=== PATIENT | female | born 1970 | race Two or more races ===

== ENCOUNTER → 2017-07-27 | Outpatient (REF) | payer OTHER | LOC: M LAB REF 17:48 | DX: R30.0 Dysuria (principal) | CPT/HCPCS: 87086 ==

== ENCOUNTER → 2018-02-10 | Outpatient (REF) | payer OTHER | LOC: M WUC 12:33 | DX: N39.0 Urinary tract infection, site not specified (principal) ==

== ENCOUNTER 2018-09-29 07:49 | Day surgery (SDC) | payer OTHER ==
[~2018-09-29] VITALS: Ht 162.6 cm; Wt 56.7 kg
[~2018-09-29 07:49] MED LIST: AMIT100TA PO; BOTO200I IM; D 10CHW PO; GABA600T4 PO; LEVO50TA5 PO; NS 1,000 ML IV ONE; TOPA200T7 PO; [UNRECOGNIZED DRUG - CODE] SC
[2018-09-29] MEDS ORDERED: fentaNYL 100 MCG/2 ML INJECTION (J3010) As Ordered ONE (08:36)
[2018-09-29] MEDS ORDERED: PROPOFOL 200 MG/20 ML VIAL As Ordered ONE (08:40)
[2018-09-29] MEDS ORDERED: LIDOCAINE 2% INJ 100 MG/5 ML SDV (FOR ANES.) As Ordered ONE (08:41)
--- NOTE | 2018-09-29 09:16 | ROOR ---
Patient Name: Chris Mills Procedure Date: 09/29/2018 9:03 AM Date of : 1970 Age: 48 Room: [facility] Gender: Female Note Status: Finalized Procedure: Upper Endoscopy + Biopsies Indications: Odynophagia Providers: Magan Alcocer MD Referring MD: HETAL FONG MD Requesting Provider: Medicines: Monitored Anesthesia Care Complications: No immediate complications. Procedure: Pre-Anesthesia Assessment: - The heart rate, respiratory rate, oxygen saturations, blood pressure, adequacy of pulmonary ventilation, and response to care were monitored throughout the procedure. The Endoscope was introduced through the mouth, and advanced to the second part of duodenum. The upper GI endoscopy was accomplished without difficulty. The patient tolerated the procedure well. Findings: The Z-line was regular and was found 40 cm from the incisors. Diffuse, yellow plaques were found in the entire esophagus. Biopsies were taken with a cold forceps for histology. No other significant abnormalities were identified in a careful examination of the stomach. The exam of the duodenum was otherwise normal. Impression: - Z-line regular, 40 cm from the incisors. - Esophageal plaques were found, suspicious for candidiasis. Biopsied. - The examination was otherwise normal. Recommendation: - Await pathology results. - Discharge patient to home. - Follow an antireflux regimen. - Diflucan (fluconazole) 100 mg PO daily for 2 weeks. - Await pathology results. - Telephone GI clinic for pathology results in 1 week. - Return to referring physician. - The findings and recommendations were discussed with the patient's family. Magan Alcocer MD Magan Alcocer MD 09/29/2018 9:16:08 AM This report has been signed electronically. Number of Addenda: 0 Note Initiated On: 09/29/2018 9:03 AM Estimated Blood Loss: Estimated blood loss: none.
[2018-09-29 09:45] VITALS: BP 106/64
== END 2018-09-29 09:47 | disposition home or self-care (01) ==
LOC: M OPP 07:49
PROVIDERS: ATTEND Internal Medicine Gastroenterology
DX: R13.10 Dysphagia, unspecified (principal); K22.9 Disease of esophagus, unspecified; Z79.899 Other long term (current) drug therapy; Z88.8 Allergy status to other drugs, medicaments and biological substances; Z87.891 Personal history of nicotine dependence
CPT/HCPCS: 43239; 88305; J3010

== ENCOUNTER 2019-09-15 11:24 | Emergency (ER) | payer OTHER ==
[~2019-09-15] VITALS: Ht 162.6 cm; Wt 60.1 kg
[~2019-09-15 11:24] MED LIST changes: -NS 1,000 ML IV ONE
[2019-09-15 12:06] LABS: HEMATOCRIT 41.3 % (36.0-47.0); MEAN CORPUSCULAR HEMOGLOBIN 30.4 pg (27.0-33.0); MEAN CORPUSCULAR HGB CONC 33.9 g/dl (32.0-36.5); MEAN CORPUSCULAR VOLUME 89.8 fl (80.0-96.0); PLATELET COUNT, AUTOMATED 198 10^3/uL (150-450); WHITE BLOOD COUNT 4.2 10^3/uL (4.0-10.0)
[2019-09-15] MEDS ORDERED: ASPIRIN 81 MG CHEW TABLET PO ONE (12:15)
[2019-09-15] MEDS: NITROGLYCERIN 0.4 MG SUBL TABLET SL PRN ×3 (12:16→12:30)
[2019-09-15 12:27] LABS: BASOPHILS 2 % (0-1); EOSINOPHILS 3 % (0-3); LYMPHOCYTES 59 % (16-44); MONOCYTES 10 % (0-5); NEUTROPHILS 26 % (28-66)
[2019-09-15 12:28] LABS: PLATELET ESTIMATE NORMAL (NORMAL)
[2019-09-15 12:30] VITALS: BP 122/76
--- NOTE | 2019-09-15 12:30 | REP ---
CHEST, SINGLE VIEW: There is no evidence of acute infiltrate. No pleural effusion is seen. The heart is normal in size. The mediastinal silhouette is unremarkable. The visualized osseous structures are intact. IMPRESSION: No acute pulmonary disease. Electronically Signed by Shemar Li MD 09/15/2019 07:55 P
[2019-09-15 12:39] LABS: ALBUMIN 3.6 GM/DL (3.2-5.2); ALT/SGPT 35 U/L (12-78); BILIRUBIN,DIRECT < 0.1 MG/DL (0.0-0.2); BILIRUBIN,TOTAL 0.2 MG/DL (0.2-1.0); BLOOD UREA NITROGEN 8 MG/DL (7-18); CALCIUM LEVEL 8.7 MG/DL (8.5-10.1); CARBON DIOXIDE LEVEL 24 MEQ/L (21-32); CHLORIDE LEVEL 112 MEQ/L (98-107); CK-MB VALUE MASS 1.8 NG/ML (<3.6); CPK CREATINE PHOSPHOKINASE 63 U/L (26-192); CREATININE FOR GFR 0.85 MG/DL (0.55-1.30); GLOMERULAR FILTRATION RATE > 60.0 (>51); GLUCOSE, FASTING 96 MG/DL (70-100); LIPASE 132 U/L (73-393); MB/CK RELATIVE INDEX 2.86 (< OR =4); POTASSIUM SERUM 3.7 MEQ/L (3.5-5.1); SODIUM LEVEL 141 MEQ/L (136-145); TOTAL PROTEIN 7.4 GM/DL (6.4-8.2); TROPONIN I 0.02 NG/ML (< 0.10)
[2019-09-15] MEDS ORDERED: MORPHINE 4 MG/ML 1ML VIAL/SYRINGE (J2270) IV ONE ×2 (13:00→14:15)
[2019-09-15 13:17] LABS: INR 0.99; PROTHROMBIN TIME 12.8 SECONDS (11.8-14.0)
[2019-09-15] MEDS ORDERED: ISOVUE-370 76% 100ML VIAL (Q9967) As Ordered ONE (13:49)
[2019-09-15] MEDS ORDERED: ONDANSETRON 4MG/2ML VIAL (J2405) IV ONE (14:00)
--- NOTE | 2019-09-15 14:26 | REP ---
CT thoracic aortic angiogram: With IV contrast. History: Chest pain. Rule out aortic dissection. Comparison studies: No comparison study. Contrast dose: 75 mL of Isovue [address] technique: Helical scanning is acquired and overlapping 1.5 mm and contiguous 3 mm axial images are reformatted. In addition, maximum intensity projection and multiplanar re-formation images are generated in sagittal and coronal imaging projections. CT aortic angiographic findings: There is good opacification of the thoracic aorta and there is no CT evidence of aortic dissection or aneurysm. The ascending aorta measures 28 mm in AP dimension at the level of the right main pulmonary artery. Pulmonary arterial tree is well opacified and there is no CT evidence of pulmonary embolus. There is no evidence of hilar or mediastinal mass or adenopathy. No pleural or pericardial effusion is seen. There is some plate-like atelectasis in the right lower lobe and left lower lobe posteriorly mild in degree. No definite infiltrate is seen. No lung mass or significant pulmonary nodule is appreciated. There is a calcified benign granuloma in the left upper lobe posteriorly. 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 Bone window settings show no adrenal lesion is seen. Visualized upper abdominal structures are unremarkable. Impression: There is no evidence of aortic aneurysm or dissection. No CT evidence of pulmonary embolus. Granuloma left upper lobe. Bilateral lower lobe mild plate-like atelectasis. Otherwise negative. Electronically Signed by Donnell Boss MD 09/15/2019 06:01 P
[2019-09-15] MEDS ORDERED: HEPARIN SOD (PORCINE) 5000 UNITS/ML VIAL (J1644 PER 1000UNITS) IV ONE (14:45)
[2019-09-15] MEDS ORDERED: CLOPIDOGREL 300 MG TAB (PLAVIX) PO ONE (14:45)
[2019-09-15] MEDS ORDERED: HEPARIN DRIP 25,000 UNITS in IV 1 EA IV SCH (15:00)
[2019-09-15 15:38] VITALS: BP 106/64
--- NOTE | 2019-09-17 06:18 | ECGEPIP ---
[facility] - ED Test Date: 2019-09-15 Pat Name: ANTHONY ADAMS Department: Room: - Gender: Female [employer]: THI : 1970 Requested By: Woody Downs Order Number: [id number] Reading MD: Holden Hargrove Measurements Intervals [place] Rate: 89 P: 72 LA: 161 QRS: 68 QRSD: 88 T: 12 QT: 334 QTc: 407 Interpretive Statements SINUS RHYTHM NONSPECIFIC ST & T-WAVE ABNORMALITY NO PRIORS FOR COMPARISON Electronically Signed on 09-17-2019 6:17:57 EST by Holden Hargrove
== END 2019-09-15 15:42 | disposition short-term general hospital (02) ==
LOC: M ED 11:24
DX: I20.0 Unstable angina (principal); R94.31 Abnormal electrocardiogram [ECG] [EKG]; R91.8 Other nonspecific abnormal finding of lung field; M32.9 Systemic lupus erythematosus, unspecified; E03.9 Hypothyroidism, unspecified; Z87.891 Personal history of nicotine dependence; Z88.3 Allergy status to other anti-infective agents; Z79.83 Long term (current) use of bisphosphonates; Z79.899 Other long term (current) drug therapy
CPT/HCPCS: 36415; 71045; 71275; 80048; 80076; 82550; 82553; 83690; 84484; 85025; 85610; 85730; 93005; 93041; 94760; 96374; 96375; 96376; 99285; J1644; J2270; J2405; Q9967

== ENCOUNTER → 2020-01-06 | Outpatient (REF) | payer OTHER | LOC: M WUC 12:27 | PROVIDERS: ATTEND Physician Assistant | DX: R30.0 Dysuria (principal) ==

== ENCOUNTER → 2020-06-27 | Outpatient (CLI) | payer SELFPAY | LOC: M LABSMTC 13:28 | PROVIDERS: ATTEND Pediatrics | DX: Z20.828 Contact with and (suspected) exposure to other viral communicable diseases (principal) ==

== ENCOUNTER → 2020-07-18 | Outpatient (CLI) | payer OTHER ==
[2020-07-18 17:34] LABS: FREE T4 1.12 NG/DL (0.76-1.46); THYROID STIMULATING HORMONE 0.561 uIU/ML (0.358-3.740)
== END ==
LOC: M WUC 14:21
PROVIDERS: ATTEND Nurse Practitioner Family
DX: E06.3 Autoimmune thyroiditis (principal)

== ENCOUNTER → 2020-08-03 | Outpatient (CLI) | payer OTHER ==
[2020-08-03 16:14] LABS: BASO % 0.8 % (0.0-1.0); EOS # 0.1 10^3/uL (0.0-0.5); EOS % 1.4 % (0.0-3.0); HEMATOCRIT 41.2 % (36.0-47.0); HEMOGLOBIN 13.6 g/dl (12.0-15.5); LYMPH # 2.1 10^3/uL (1.5-5.0); LYMPH % 58.8 % (24.0-44.0); MEAN CORPUSCULAR VOLUME 90.9 fl (80.0-96.0); MONO # 0.4 10^3/uL (0.0-0.8); MONO % 10.5 % (0.0-5.0); NEUTROPHILS % 28.5 % (36.0-66.0); PLATELET COUNT, AUTOMATED 198 10^3/uL (150-450); RED BLOOD COUNT 4.53 10^6/uL (4.00-5.40); WHITE BLOOD COUNT 3.6 10^3/uL (4.0-10.0)
[2020-08-03 16:40] LABS: ERYTHROCYTE SEDIMENTATION RATE 10 mm/hr (0-30)
[2020-08-03 16:50] LABS: ALBUMIN 3.8 GM/DL (3.2-5.2); ALT/SGPT 24 U/L (12-78); BILIRUBIN,TOTAL 0.3 MG/DL (0.2-1.0); BLOOD UREA NITROGEN 15 MG/DL (7-18); CALCIUM LEVEL 9.2 MG/DL (8.5-10.1); CARBON DIOXIDE LEVEL 24 MEQ/L (21-32); CHLORIDE LEVEL 109 MEQ/L (98-107); CREATININE FOR GFR 0.94 MG/DL (0.55-1.30); GLOMERULAR FILTRATION RATE > 60.0 (>51); GLUCOSE, FASTING 85 MG/DL (70-100); POTASSIUM SERUM 3.8 MEQ/L (3.5-5.1); RHEUMATOID FACTOR QUANT 45.7 IU/ML (<15.0); SODIUM LEVEL 139 MEQ/L (136-145); TOTAL PROTEIN 7.5 GM/DL (6.4-8.2)
[2020-08-06 05:09] LABS: ANTI DOUBLE STRAND-DNA AB <1 IU/mL (0-9); ANTINUCLEAR ANTIBODIES DIRECT Positive (Negative); BETA-2 GLYCOPROTEIN I ABY IGA <9 (0-25); BETA-2 GLYCOPROTEIN I ABY IGG <9 (0-20); BETA-2 GLYCOPROTEIN I ABY IGM <9 (0-32); CARDIOLIPIN IGA ANTIBODY <9 APL U/mL (0-11); CARDIOLIPIN IGG ANTIBODY <9 GPL U/mL (0-14); CARDIOLIPIN IGM ANTIBODY 10 MPL U/mL (0-12); HEXAGONAL PHASE PHOSPHOLIPID 4 sec (0-11); RNP ANTIBODIES <0.2 AI (0.0-0.9); SJOGREN'S ANTI SS-A >8.0 AI (0.0-0.9); SJOGREN'S ANTI SS-B 4.2 AI (0.0-0.9); SMITH ANTIBODIES <0.2 AI (0.0-0.9)
[2020-08-10 11:30] LABS: DRVV SCREEN 40.4 SEC
== END ==
LOC: M WUC 14:20
PROVIDERS: ATTEND Internal Medicine Rheumatology
DX: R76.8 Other specified abnormal immunological findings in serum (principal); M05.79 Rheumatoid arthritis with rheumatoid factor of multiple sites without organ or systems involvement; M35.00 Sjogren syndrome, unspecified

== ENCOUNTER → 2020-08-09 | Outpatient (REF) | payer OTHER | LOC: M LAB REF 16:04 | PROVIDERS: ATTEND Physician Assistant | DX: R30.0 Dysuria (principal) ==

== ENCOUNTER → 2020-12-10 | Outpatient (REF) | payer OTHER | LOC: M LAB REF 18:08 | PROVIDERS: ATTEND Physician Assistant | DX: R30.0 Dysuria (principal) ==

== ENCOUNTER → 2021-01-04 | Outpatient (CLI) | payer OTHER ==
[2021-01-04 18:15] LABS: BASO % 0.8 % (0.0-1.0); EOS # 0.1 10^3/uL (0.0-0.5); EOS % 1.8 % (0.0-3.0); HEMATOCRIT 42.1 % (36.0-47.0); HEMOGLOBIN 13.8 g/dl (12.0-15.5); LYMPH # 2.7 10^3/uL (1.5-5.0); LYMPH % 69.5 % (24.0-44.0); MEAN CORPUSCULAR HEMOGLOBIN 29.2 pg (27.0-33.0); MEAN CORPUSCULAR HGB CONC 32.8 g/dl (32.0-36.5); MONO # 0.4 10^3/uL (0.0-0.8); MONO % 11.2 % (2.0-8.0); NEUTROPHILS % 16.7 % (36.0-66.0); PLATELET COUNT, AUTOMATED 220 10^3/uL (150-450); RED BLOOD COUNT 4.73 10^6/uL (4.00-5.40); WHITE BLOOD COUNT 3.9 10^3/uL (4.0-10.0)
[2021-01-04 18:35] LABS: ALT/SGPT 25 U/L (12-78); BILIRUBIN,TOTAL 0.4 MG/DL (0.2-1.0); BLOOD UREA NITROGEN 9 MG/DL (7-18); CALCIUM LEVEL 8.9 MG/DL (8.5-10.1); CARBON DIOXIDE LEVEL 25 MEQ/L (21-32); CHLORIDE LEVEL 109 MEQ/L (98-107); CREATININE FOR GFR 0.97 MG/DL (0.55-1.30); GLOMERULAR FILTRATION RATE > 60.0 (>51); GLUCOSE, FASTING 94 MG/DL (70-100); POTASSIUM SERUM 3.7 MEQ/L (3.5-5.1); SODIUM LEVEL 140 MEQ/L (136-145); TOTAL PROTEIN 7.8 GM/DL (6.4-8.2)
[2021-01-04 18:41] LABS: FOLATE 10.7 NG/ML; VITAMIN B12 LEVEL 416 PG/ML
[2021-01-04 20:49] LABS: NEUTROPHILS # 0.7 10^3/uL (1.5-8.5)
== END ==
LOC: M WUC 14:15
PROVIDERS: ATTEND Psychiatry & Neurology Neurology
DX: R51.9 Headache, unspecified (principal); M54.9 Dorsalgia, unspecified

== ENCOUNTER → 2021-01-23 | Outpatient (REF) | payer OTHER ==
[2021-01-23 17:24] LABS: APPEARANCE, URINE CLOUDY (CLEAR); BACTERIA, URINE AUTO NEGATIVE (NEGATIVE); BILIRUBIN, URINE AUTO NEGATIVE (NEGATIVE); BLOOD, URINE BLOOD NEGATIVE (NEGATIVE); COLOR, URINE YELLOW (YELLOW); GLUCOSE, URINE (UA) AUTO NEGATIVE (NEGATIVE); KETONE, URINE AUTO NEGATIVE (NEGATIVE); LEUKOCYTE ESTERASE, URINE AUTO NEGATIVE (NEGATIVE); NITRITE, URINE AUTO NEGATIVE (NEGATIVE); PROTEIN, URINE AUTO NEGATIVE (NEGATIVE); RBC, URINE AUTO 0 /HPF (0-3); SPECIFIC GRAVITY URINE AUTO 1.015 (1.002-1.035); SQUAMOUS EPITHELIAL CELL UR AU 2 /HPF (0-6); UROBILINOGEN, URINE AUTO 0.2 mg/dL (0.0-2.0); WBC, URINE AUTO 0 /HPF (0-3)
== END ==
LOC: M SMT 16:56
PROVIDERS: ATTEND Nurse Practitioner Women's Health
DX: N39.0 Urinary tract infection, site not specified (principal)
CPT/HCPCS: 51798; 81001; 87086; G0463

== ENCOUNTER → 2021-02-14 | Outpatient (CLI) | payer OTHER | LOC: M WHC 12:17 | PROVIDERS: ATTEND Nurse Practitioner Women's Health | DX: N39.0 Urinary tract infection, site not specified (principal) ==

== ENCOUNTER → 2021-03-09 | Outpatient (CLI) | payer OTHER ==
--- NOTE | 2021-03-09 12:43 | REP ---
INDICATION: HX RECURRENT UTI COMPARISON: None TECHNIQUE: Real time perales scale ultrasound examination using curved array transducer. FINDINGS: Bilateral kidneys are normal in contour, size, echogenicity, and reniform shape. No hydronephrosis, nephrolithiasis, cystic or renal mass lesion. No perinephric fluid collection. Bladder is unremarkable. Right kidney measures 9.7 x 5.5 x 3.5 cm. Left kidney measures 9.9 x 4.9 x 5.2 cm. IMPRESSION: 1. Normal renal ultrasound. <Electronically signed by James Kyle > 03/09/21 [id number]
== END ==
LOC: M RAD 11:59
PROVIDERS: ATTEND Urology
DX: Z87.440 Personal history of urinary (tract) infections (principal)

== ENCOUNTER → 2021-03-13 | Outpatient (CLI) | payer OTHER ==
[2021-03-13 11:54] LABS: CALCIUM LEVEL 9.2 MG/DL (8.5-10.1); CREATININE FOR GFR 1.03 MG/DL (0.55-1.30); GLOMERULAR FILTRATION RATE 59.9 (>51); POTASSIUM SERUM 3.8 MEQ/L (3.5-5.1)
== END ==
LOC: M WUC 08:51
PROVIDERS: ATTEND Nurse Practitioner Family
DX: I25.10 Atherosclerotic heart disease of native coronary artery without angina pectoris (principal)

== ENCOUNTER → 2021-03-22 | Outpatient (REF) | payer OTHER ==
[2021-03-22 13:18] LABS: APPEARANCE, URINE CLEAR (CLEAR); BACTERIA, URINE AUTO 2+ (NEGATIVE); BILIRUBIN, URINE AUTO NEGATIVE (NEGATIVE); BLOOD, URINE BLOOD NEGATIVE (NEGATIVE); COLOR, URINE AMBER (YELLOW); GLUCOSE, URINE (UA) AUTO NEGATIVE (NEGATIVE); KETONE, URINE AUTO NEGATIVE (NEGATIVE); LEUKOCYTE ESTERASE, URINE AUTO 1+ (NEGATIVE); MUCUS, URINE SMALL (NEGATIVE); NITRITE, URINE AUTO POSITIVE (NEGATIVE); PROTEIN, URINE AUTO NEGATIVE (NEGATIVE); RBC, URINE AUTO 1 /HPF (0-3); SPECIFIC GRAVITY URINE AUTO 1.012 (1.002-1.035); SQUAMOUS EPITHELIAL CELL UR AU 1 /HPF (0-6); WBC, URINE AUTO 13 /HPF (0-3)
== END ==
LOC: M SMT 12:39
PROVIDERS: ATTEND Nurse Practitioner Women's Health
DX: R30.0 Dysuria (principal)

== ENCOUNTER → 2021-05-16 | Outpatient (REF) | payer OTHER ==
[2021-05-16 14:02] LABS: APPEARANCE, URINE CLEAR (CLEAR); BACTERIA, URINE AUTO 1+ (NEGATIVE); BILIRUBIN, URINE AUTO NEGATIVE (NEGATIVE); BLOOD, URINE BLOOD NEGATIVE (NEGATIVE); COLOR, URINE AMBER (YELLOW); GLUCOSE, URINE (UA) AUTO 1+ mg/dL (NEGATIVE); KETONE, URINE AUTO NEGATIVE (NEGATIVE); LEUKOCYTE ESTERASE, URINE AUTO TRACE (NEGATIVE); MUCUS, URINE SMALL (NEGATIVE); NITRITE, URINE AUTO POSITIVE (NEGATIVE); PROTEIN, URINE AUTO 2+ mg/dL (NEGATIVE); RBC, URINE AUTO 2 /HPF (0-3); SQUAMOUS EPITHELIAL CELL UR AU 16 /HPF (0-6); WBC, URINE AUTO 102 /HPF (0-3)
== END ==
LOC: M SMT 13:04
PROVIDERS: ATTEND Nurse Practitioner Women's Health
DX: N39.0 Urinary tract infection, site not specified (principal)

== ENCOUNTER → 2021-07-13 | Outpatient (CLI) | payer OTHER ==
[2021-07-13 16:40] LABS: FREE T4 1.2 NG/DL (0.76-1.46); THYROID STIMULATING HORMONE 0.037 uIU/ML (0.358-3.740)
== END ==
LOC: M WUC 09:59
PROVIDERS: ATTEND Nurse Practitioner Family
DX: E06.3 Autoimmune thyroiditis (principal)

== ENCOUNTER → 2021-10-16 | Outpatient (REF) | payer OTHER | LOC: M LAB REF 22:17 | PROVIDERS: ATTEND Physician Assistant | DX: N39.0 Urinary tract infection, site not specified (principal) ==

== ENCOUNTER → 2021-10-16 | Outpatient (CLI) | payer OTHER ==
[2021-10-16 16:42] LABS: FREE T4 1.12 NG/DL (0.76-1.46); THYROID STIMULATING HORMONE 0.13 uIU/ML (0.358-3.740)
== END ==
LOC: M WUC 13:18
PROVIDERS: ATTEND Nurse Practitioner Family
DX: E06.3 Autoimmune thyroiditis (principal)

== ENCOUNTER → 2021-11-01 | Outpatient (REF) | payer OTHER ==
[2021-11-01 20:05] LABS: APPEARANCE, URINE MANUAL HAZY (CLEAR); BILIRUBIN, URINE MANUAL OBSCURED (NEGATIVE); COLOR, URINE MANUAL ORANGE (YELLOW); GLUCOSE, URINE (UA) MANUAL OBSCURED mg/dL (NEGATIVE); KETONE, URINE MANUAL OBSCURED mg/dL (NEGATIVE); NITRITE, URINE MANUAL OBSCURED (NEGATIVE); PH,URINE MAN OBSCURED UNITS (5.0 - 7.0); PROTEIN, URINE MANUAL OBSCURED mg/dL (NEGATIVE); SPECIFIC GRAVITY,URINE MANUAL 1.015 (1.002-1.035); UROBILINOGEN, URINE MANUAL OBSCURED mg/dl (NORMAL)
[2021-11-01 20:06] LABS: BLOOD URINE MANUAL OBSCURED (NEGATIVE); LEUKOCYTE ESTERASE, URINE MAN OBSCURED (NEGATIVE)
[2021-11-01 20:07] LABS: BACTERIA, URINE SMALL AMOUNT; HYALINE CAST, URINE NONE SEEN /lpf (0-1); RBC, URINE NONE SEEN /hpf (0-3); SQUAMOUS EPITHELIAL CELL URINE SMALL AMOUNT /hpf (SMALL AMT)
== END ==
LOC: M LAB REF 19:35
PROVIDERS: ATTEND Physician Assistant Medical
DX: R30.0 Dysuria (principal)

== ENCOUNTER → 2021-11-24 | Outpatient (CLI) | payer OTHER ==
[2021-11-24 16:12] LABS: BASO % 0.7 % (0.0-1.0); EOS # 0.3 10^3/uL (0.0-0.5); EOS % 4.9 % (0.0-3.0); HEMOGLOBIN 13.3 g/dl (12.0-15.5); LYMPH # 2.9 10^3/uL (1.5-5.0); LYMPH % 49.2 % (24.0-44.0); MEAN CORPUSCULAR HEMOGLOBIN 29.2 pg (27.0-33.0); MEAN CORPUSCULAR HGB CONC 33.3 g/dl (32.0-36.5); MEAN CORPUSCULAR VOLUME 87.9 fl (80.0-96.0); MONO # 0.5 10^3/uL (0.0-0.8); MONO % 8.9 % (2.0-8.0); NEUTROPHILS # 2.1 10^3/uL (1.5-8.5); PLATELET COUNT, AUTOMATED 209 10^3/uL (150-450); RED BLOOD COUNT 4.55 10^6/uL (4.00-5.40); WHITE BLOOD COUNT 5.9 10^3/uL (4.0-10.0)
[2021-11-24 16:13] LABS: ALBUMIN 3.8 GM/DL (3.2-5.2); BILIRUBIN,TOTAL 0.5 MG/DL (0.2-1.0); CALCIUM LEVEL 9.4 MG/DL (8.5-10.1); CREATININE FOR GFR 1.17 MG/DL (0.55-1.30); GLOMERULAR FILTRATION RATE 51.7 (>51); POTASSIUM SERUM 3.9 MEQ/L (3.5-5.1); TOTAL PROTEIN 7.8 GM/DL (6.4-8.2)
== END ==
LOC: M WUC 14:00
PROVIDERS: ATTEND Psychiatry & Neurology Neurology
DX: R51.9 Headache, unspecified (principal); E53.8 Deficiency of other specified B group vitamins

== ENCOUNTER → 2021-12-07 | Outpatient (REF) | payer OTHER ==
[2021-12-07 18:02] LABS: APPEARANCE, URINE CLEAR (CLEAR); BACTERIA, URINE AUTO NEGATIVE (NEGATIVE); BILIRUBIN, URINE AUTO NEGATIVE (NEGATIVE); BLOOD, URINE BLOOD NEGATIVE (NEGATIVE); COLOR, URINE YELLOW (YELLOW); GLUCOSE, URINE (UA) AUTO NEGATIVE (NEGATIVE); KETONE, URINE AUTO NEGATIVE (NEGATIVE); LEUKOCYTE ESTERASE, URINE AUTO 1+ (NEGATIVE); NITRITE, URINE AUTO NEGATIVE (NEGATIVE); PROTEIN, URINE AUTO NEGATIVE (NEGATIVE); RBC, URINE AUTO 0 /HPF (0-3); SPECIFIC GRAVITY URINE AUTO 1.004 (1.002-1.035); SQUAMOUS EPITHELIAL CELL UR AU 0 /HPF (0-6); UROBILINOGEN, URINE AUTO 0.2 mg/dL (0.0-2.0); WBC, URINE AUTO 2 /HPF (0-3)
== END ==
LOC: M SMT 17:11
PROVIDERS: ATTEND Nurse Practitioner Women's Health
DX: N39.0 Urinary tract infection, site not specified (principal)
CPT/HCPCS: 81001; 87086; G0463

== ENCOUNTER → 2022-01-30 | Outpatient (REF) | payer OTHER | LOC: M LABWUC 15:46 | PROVIDERS: ATTEND Nurse Practitioner Family | DX: E06.3 Autoimmune thyroiditis (principal) ==

== ENCOUNTER → 2022-03-16 | Outpatient (CLI) | payer OTHER | LOC: M WUC 08:45 | PROVIDERS: ATTEND Nurse Practitioner Family | DX: I25.10 Atherosclerotic heart disease of native coronary artery without angina pectoris (principal) ==

== ENCOUNTER → 2022-03-23 | Outpatient (REF) | payer OTHER ==
[2022-03-23 22:15] LABS: RSV AMPLIFICATION NEGATIVE (NEGATIVE)
== END ==
LOC: M LAB REF 21:04
PROVIDERS: ATTEND Internal Medicine
DX: J06.9 Acute upper respiratory infection, unspecified (principal)

== ENCOUNTER 2022-07-17 01:12 | Emergency (ER) | payer OTHER ==
[~2022-07-17] VITALS: Ht 162.6 cm; Wt 56.4 kg
[2022-07-17] MEDS ORDERED: KETOROLAC 30 MG/ML 1ML VIAL IV ONE (04:10)
[2022-07-17] MEDS ORDERED: METOCLOPRAMIDE INJ 10MG/2ML VIAL IV ONE (04:10)
[2022-07-17] MEDS ORDERED: NS 1,000 ML IV ONE (04:10)
[2022-07-17 04:40] LABS: HEMATOCRIT 39.8 % (36.0-47.0); HEMOGLOBIN 12.8 g/dl (12.0-15.5); MEAN CORPUSCULAR HEMOGLOBIN 29.5 pg (27.0-33.0); MEAN CORPUSCULAR HGB CONC 32.2 g/dl (32.0-36.5); MEAN CORPUSCULAR VOLUME 91.7 fl (80.0-96.0); PLATELET COUNT, AUTOMATED 128 10^3/uL (150-450); RED BLOOD COUNT 4.34 10^6/uL (4.00-5.40); WHITE BLOOD COUNT 3.3 10^3/uL (4.0-10.0)
[2022-07-17 04:47] LABS: ERYTHROCYTE SEDIMENTATION RATE 35 mm/hr (0-30)
[2022-07-17 05:00] LABS: BLOOD UREA NITROGEN 12 MG/DL (9-23); CALCIUM LEVEL 8.7 MG/DL (8.5-10.1); CARBON DIOXIDE LEVEL 19 MMOL/L (20-31); CHLORIDE LEVEL 107 MMOL/L (98-107); CREATININE FOR GFR 0.88 MG/DL (0.55-1.30); GLOMERULAR FILTRATION RATE > 60.0 (>51); GLUCOSE, FASTING 95 MG/DL (60-100); POTASSIUM SERUM 3.9 MMOL/L (3.5-5.1); SODIUM LEVEL 139 MMOL/L (136-145)
[2022-07-17 05:01] LABS: ATYPICAL LYMPH 9 % (0-5); BASOPHILS 1 % (0-1); EOSINOPHILS 5 % (0-3); LYMPHOCYTES 20 % (16-44); MONOCYTES 8 % (0-5); NEUTROPHILS 55 % (28-66)
[2022-07-17 05:02] LABS: PLATELET ESTIMATE NORMAL (NORMAL)
[2022-07-17 05:03] LABS: PLATELET CLUMPS SMALL AMT
[2022-07-17] MEDS ORDERED: methylPREDNISolone 125MG 2ML VIAL IV ONE (05:25)
[2022-07-17 07:15] VITALS: BP 104/58
== END 2022-07-17 07:23 | disposition home or self-care (01) ==
LOC: M ED 01:12
DX: L93.1 Subacute cutaneous lupus erythematosus (principal); G43.909 Migraine, unspecified, not intractable, without status migrainosus; E03.9 Hypothyroidism, unspecified; Z88.8 Allergy status to other drugs, medicaments and biological substances; Z87.891 Personal history of nicotine dependence; Z79.899 Other long term (current) drug therapy; Z79.82 Long term (current) use of aspirin
CPT/HCPCS: 80048; 85025; 85652; 96374; 96375; 99284; J1885; J2765; J2930

== ENCOUNTER → 2022-07-27 | Outpatient (CLI) | payer OTHER | LOC: M WUC 14:11 | PROVIDERS: ATTEND Nurse Practitioner Family | DX: E06.3 Autoimmune thyroiditis (principal) ==

== ENCOUNTER → 2022-08-30 | Outpatient (REF) | payer OTHER | LOC: M PLALAB 16:27 | PROVIDERS: ATTEND Nurse Practitioner Family | DX: Z12.4 Encounter for screening for malignant neoplasm of cervix (principal); R87.610 Atypical squamous cells of undetermined significance on cytologic smear of cervix (ASC-US) | CPT/HCPCS: 87624; G0123 ==

== ENCOUNTER → 2022-08-30 | Outpatient (CLI) | payer OTHER | LOC: M WHC 13:53 | PROVIDERS: ATTEND Nurse Practitioner Family | DX: Z12.31 Encounter for screening mammogram for malignant neoplasm of breast (principal) | CPT/HCPCS: 77063; 77067; 87624; G0123; G0463 ==

== ENCOUNTER → 2022-11-01 | Outpatient (CLI) | payer OTHER ==
[2022-11-01 17:05] LABS: ALBUMIN 3.6 G/DL (3.2-5.2); ALKALINE PHOSPHATASE 92 U/L (46-116); ALT/SGPT 25 U/L (7.0-40); AST/SGOT 25 U/L (<34); BILIRUBIN,TOTAL 0.2 MG/DL (0.3-1.2); BLOOD UREA NITROGEN 20 MG/DL (9-23); CARBON DIOXIDE LEVEL 26 MMOL/L (20-31); CHLORIDE LEVEL 110 MMOL/L (98-107); CREATININE FOR GFR 0.97 MG/DL (0.55-1.30); GLOMERULAR FILTRATION RATE > 60.0 (>51); GLUCOSE, FASTING 75 MG/DL (60-100); SODIUM LEVEL 142 MMOL/L (136-145); TOTAL PROTEIN 6.7 G/DL (5.7-8.2)
[2022-11-01 17:11] LABS: TOTAL 25(OH) VITAMIN D 21.4 NG/ML (20.0-100.0)
[2022-11-01 17:12] LABS: FOLATE 7.89 NG/ML (>5.4)
[2022-11-01 17:16] LABS: BASO % 0.5 % (0.0-1.0); EOS # 0.2 10^3/uL (0.0-0.5); EOS % 3.4 % (0.0-3.0); HEMATOCRIT 40.3 % (36.0-47.0); HEMOGLOBIN 13.2 g/dl (12.0-15.5); LYMPH # 3.1 10^3/uL (1.5-5.0); MEAN CORPUSCULAR HEMOGLOBIN 30.3 pg (27.0-33.0); MEAN CORPUSCULAR HGB CONC 32.8 g/dl (32.0-36.5); MEAN CORPUSCULAR VOLUME 92.6 fl (80.0-96.0); MONO # 0.6 10^3/uL (0.0-0.8); MONO % 9.7 % (2.0-8.0); NEUTROPHILS # 1.8 10^3/uL (1.5-8.5); PLATELET COUNT, AUTOMATED 241 10^3/uL (150-450); RED BLOOD COUNT 4.35 10^6/uL (4.00-5.40); WHITE BLOOD COUNT 5.7 10^3/uL (4.0-10.0)
[2022-11-01 17:48] LABS: VITAMIN B12 LEVEL 271 PG/ML (211-911)
== END ==
LOC: M WUC 14:17
PROVIDERS: ATTEND Psychiatry & Neurology Neurology
DX: R51.9 Headache, unspecified (principal)

== ENCOUNTER → 2022-12-07 | Outpatient (CLI) | payer OTHER ==
[2022-12-07 11:42] LABS: CHOLESTEROL RISK RATIO 2.37 (<5); HDL CHOLESTEROL 41.7 MG/DL (>40); LDL CHOLESTEROL 39.1 MG/DL (<100); NON-HDL-C 57.3 MG/DL
== END ==
LOC: M WUC 08:01
PROVIDERS: ATTEND Nurse Practitioner Family
DX: I25.10 Atherosclerotic heart disease of native coronary artery without angina pectoris (principal)

== ENCOUNTER → 2023-01-07 | Outpatient (CLI) | payer OTHER | LOC: M WUC 14:20 | PROVIDERS: ATTEND Nurse Practitioner Family | DX: E06.3 Autoimmune thyroiditis (principal) ==

== ENCOUNTER → 2023-01-08 | Outpatient (CLI) | payer OTHER | LOC: M PAIN 13:00 | PROVIDERS: ATTEND Nurse Practitioner Family | DX: M79.10 Myalgia, unspecified site (principal); G89.29 Other chronic pain; G43.909 Migraine, unspecified, not intractable, without status migrainosus; E03.9 Hypothyroidism, unspecified; I25.2 Old myocardial infarction; Z88.2 Allergy status to sulfonamides; Z88.8 Allergy status to other drugs, medicaments and biological substances; Z79.82 Long term (current) use of aspirin; Z79.890 Hormone replacement therapy; Z79.899 Other long term (current) drug therapy ==

== ENCOUNTER → 2023-03-25 | Outpatient (CLI) | payer OTHER ==
[~2023-03-25] MED LIST changes: +TRIAMCINOLONE ACETONIDE SUSP 40MG/ML 1ML VIAL As Ordered ONE; +diazePAM 5MG TABLET As Ordered ONE
== END ==
LOC: M PAIN 13:00
PROVIDERS: ATTEND Anesthesiology
DX: M79.18 Myalgia, other site (principal); G89.29 Other chronic pain; G43.909 Migraine, unspecified, not intractable, without status migrainosus; E03.9 Hypothyroidism, unspecified; I25.2 Old myocardial infarction; Z87.891 Personal history of nicotine dependence; Z88.2 Allergy status to sulfonamides; Z88.6 Allergy status to analgesic agent; Z88.8 Allergy status to other drugs, medicaments and biological substances; Z79.82 Long term (current) use of aspirin; Z79.890 Hormone replacement therapy; Z79.899 Other long term (current) drug therapy
CPT/HCPCS: 20552; J0665; J3301

== ENCOUNTER → 2023-04-22 | Outpatient (CLI) | payer OTHER ==
[~2023-04-22] MED LIST changes: -TRIAMCINOLONE ACETONIDE SUSP 40MG/ML 1ML VIAL As Ordered ONE; -diazePAM 5MG TABLET As Ordered ONE
== END ==
LOC: M PAIN 14:30
PROVIDERS: ATTEND Nurse Practitioner Family
DX: M79.10 Myalgia, unspecified site (principal); G89.29 Other chronic pain; Z80.1 Family history of malignant neoplasm of trachea, bronchus and lung; Z87.891 Personal history of nicotine dependence; Z88.2 Allergy status to sulfonamides; Z88.8 Allergy status to other drugs, medicaments and biological substances; Z79.82 Long term (current) use of aspirin; Z79.899 Other long term (current) drug therapy

== ENCOUNTER → 2023-04-23 | Outpatient (REF) | payer OTHER | LOC: M WUC 16:31 | PROVIDERS: ATTEND Nurse Practitioner Family | DX: E06.3 Autoimmune thyroiditis (principal) ==

== ENCOUNTER → 2023-04-24 | Outpatient (REF) | payer OTHER | LOC: M LAB REF 16:51 | PROVIDERS: ATTEND Student in an Organized Health Care Education/Training Program | DX: R30.0 Dysuria (principal) ==

== ENCOUNTER → 2023-06-10 | Outpatient (REF) | payer OTHER | LOC: M SFHCWAGY 15:26 | PROVIDERS: ATTEND Nurse Practitioner Family | DX: N94.10 Unspecified dyspareunia (principal) | CPT/HCPCS: 87070; 87077; 87086; 87186; G0463 ==

== ENCOUNTER → 2023-06-21 | Outpatient (CLI) | payer OTHER | LOC: M PAIN 14:00 | PROVIDERS: ATTEND Nurse Practitioner Family | DX: M51.16 Intervertebral disc disorders with radiculopathy, lumbar region (principal); G89.29 Other chronic pain; Z80.1 Family history of malignant neoplasm of trachea, bronchus and lung; Z87.891 Personal history of nicotine dependence; Z88.2 Allergy status to sulfonamides; Z88.8 Allergy status to other drugs, medicaments and biological substances; Z79.82 Long term (current) use of aspirin; Z79.899 Other long term (current) drug therapy ==

== ENCOUNTER → 2023-07-19 | Outpatient (CLI) | payer OTHER | LOC: M RAD 07:15 | PROVIDERS: ATTEND Nurse Practitioner Family | DX: M51.16 Intervertebral disc disorders with radiculopathy, lumbar region (principal); M51.26 Other intervertebral disc displacement, lumbar region ==

== ENCOUNTER → 2023-07-29 | Outpatient (CLI) | payer OTHER | LOC: M PAIN 16:00 | PROVIDERS: ATTEND Nurse Practitioner Family | DX: M79.18 Myalgia, other site (principal); M51.16 Intervertebral disc disorders with radiculopathy, lumbar region; G89.29 Other chronic pain; G43.909 Migraine, unspecified, not intractable, without status migrainosus; E03.9 Hypothyroidism, unspecified; L93.0 Discoid lupus erythematosus; M35.00 Sjogren syndrome, unspecified; E06.3 Autoimmune thyroiditis; Z87.891 Personal history of nicotine dependence; Z79.82 Long term (current) use of aspirin; Z79.890 Hormone replacement therapy; Z79.899 Other long term (current) drug therapy; Z88.2 Allergy status to sulfonamides; Z88.8 Allergy status to other drugs, medicaments and biological substances ==

== ENCOUNTER 2023-08-19 09:51 | Day surgery (SDC) | payer OTHER ==
[~2023-08-19] VITALS: Ht 162.6 cm; Wt 59.4 kg
[~2023-08-19 09:51] MED LIST changes: +ASPI81TA26 PO; +ATOR40TA75 PO; +CEVI1CAP PO; +D31000TA PO; +ESTR62CR; +METO1TAB87 PO; +NS 1,000 ML IV ONE; +SYNT88TA2 PO; +TOPI100T9 PO; +VITATAB73 PO; +[UNRECOGNIZED DRUG - CODE] PO; +[UNRECOGNIZED DRUG - CODE] PO
[2023-08-19] MEDS ORDERED: propofoL 200 MG/20 ML VIAL As Ordered ONE ×2 (10:28→11:00)
[2023-08-19 11:24] VITALS: BP 118/64; TEMP 97.5; O2SAT 99
== END 2023-08-19 11:27 | disposition home or self-care (01) ==
LOC: M OPP 09:51
PROVIDERS: ATTEND Internal Medicine Gastroenterology
DX: Z12.11 Encounter for screening for malignant neoplasm of colon (principal); K64.0 First degree hemorrhoids; Z79.02 Long term (current) use of antithrombotics/antiplatelets; Z79.1 Long term (current) use of non-steroidal anti-inflammatories (NSAID); Z79.82 Long term (current) use of aspirin; Z79.890 Hormone replacement therapy; Z79.899 Other long term (current) drug therapy; Z88.5 Allergy status to narcotic agent; Z86.74 Personal history of sudden cardiac arrest; Z95.5 Presence of coronary angioplasty implant and graft

== ENCOUNTER → 2023-08-27 | Outpatient (CLI) | payer OTHER ==
[~2023-08-27] MED LIST changes: -NS 1,000 ML IV ONE
== END ==
LOC: M PAIN 16:00
PROVIDERS: ATTEND Anesthesiology
DX: M51.16 Intervertebral disc disorders with radiculopathy, lumbar region (principal); G89.29 Other chronic pain; R23.3 Spontaneous ecchymoses; Z87.891 Personal history of nicotine dependence; Z88.2 Allergy status to sulfonamides; Z88.8 Allergy status to other drugs, medicaments and biological substances; Z79.82 Long term (current) use of aspirin; Z79.899 Other long term (current) drug therapy

== ENCOUNTER → 2023-09-12 | Outpatient (CLI) | payer OTHER ==
[~2023-09-12] MED LIST changes: +TRIAMCINOLONE ACETONIDE SUSP 40MG/ML 1ML VIAL As Ordered ONE
== END ==
LOC: M PAIN 14:30
PROVIDERS: ATTEND Anesthesiology
DX: M79.18 Myalgia, other site (principal); G43.909 Migraine, unspecified, not intractable, without status migrainosus; E03.9 Hypothyroidism, unspecified; L93.0 Discoid lupus erythematosus; M35.00 Sjogren syndrome, unspecified; E06.3 Autoimmune thyroiditis; Z87.891 Personal history of nicotine dependence; Z79.82 Long term (current) use of aspirin; Z79.890 Hormone replacement therapy; Z79.899 Other long term (current) drug therapy; Z88.2 Allergy status to sulfonamides; Z88.8 Allergy status to other drugs, medicaments and biological substances
CPT/HCPCS: 20552; J0665; J3301

== ENCOUNTER → 2023-10-11 | Outpatient (REF) | payer OTHER ==
[~2023-10-11] MED LIST changes: -TRIAMCINOLONE ACETONIDE SUSP 40MG/ML 1ML VIAL As Ordered ONE
== END ==
LOC: M LABWUC 16:11
PROVIDERS: ATTEND Nurse Practitioner Family
DX: E06.3 Autoimmune thyroiditis (principal)

== ENCOUNTER → 2023-10-17 | Outpatient (CLI) | payer OTHER | LOC: M PAIN 15:30 | PROVIDERS: ATTEND Nurse Practitioner Family | DX: M79.18 Myalgia, other site (principal); G89.29 Other chronic pain; G43.909 Migraine, unspecified, not intractable, without status migrainosus; E03.9 Hypothyroidism, unspecified; L93.0 Discoid lupus erythematosus; M35.00 Sjogren syndrome, unspecified; E06.3 Autoimmune thyroiditis; Z87.891 Personal history of nicotine dependence; Z79.82 Long term (current) use of aspirin; Z79.890 Hormone replacement therapy; Z79.899 Other long term (current) drug therapy; Z88.2 Allergy status to sulfonamides; Z88.8 Allergy status to other drugs, medicaments and biological substances ==

== ENCOUNTER → 2023-11-13 | Outpatient (CLI) | payer OTHER | LOC: M WHC 14:36 | PROVIDERS: ATTEND Nurse Practitioner Family | DX: Z12.31 Encounter for screening mammogram for malignant neoplasm of breast (principal) ==

== ENCOUNTER → 2023-12-17 | Outpatient (CLI) | payer OTHER | LOC: M PAIN 15:00 | PROVIDERS: ATTEND Nurse Practitioner Family | DX: M79.10 Myalgia, unspecified site (principal); M51.16 Intervertebral disc disorders with radiculopathy, lumbar region; M32.9 Systemic lupus erythematosus, unspecified; M35.00 Sjogren syndrome, unspecified; E03.9 Hypothyroidism, unspecified; Z87.891 Personal history of nicotine dependence; Z95.5 Presence of coronary angioplasty implant and graft; Z79.02 Long term (current) use of antithrombotics/antiplatelets; Z79.1 Long term (current) use of non-steroidal anti-inflammatories (NSAID); Z79.890 Hormone replacement therapy; Z79.899 Other long term (current) drug therapy; Z88.2 Allergy status to sulfonamides; Z88.8 Allergy status to other drugs, medicaments and biological substances ==

== ENCOUNTER → 2024-02-20 | Outpatient (CLI) | payer OTHER ==
[~2024-02-20] MED LIST changes: +TRIAMCINOLONE ACETONIDE SUSP 40MG/ML 1ML VIAL As Ordered ONE
== END ==
LOC: M PAIN 15:45
PROVIDERS: ATTEND Anesthesiology
DX: M79.10 Myalgia, unspecified site (principal); E03.9 Hypothyroidism, unspecified; G43.909 Migraine, unspecified, not intractable, without status migrainosus; Z79.2 Long term (current) use of antibiotics; Z79.1 Long term (current) use of non-steroidal anti-inflammatories (NSAID); Z79.811 Long term (current) use of aromatase inhibitors; Z79.899 Other long term (current) drug therapy; Z88.2 Allergy status to sulfonamides; Z88.8 Allergy status to other drugs, medicaments and biological substances
CPT/HCPCS: 20552; J0665; J3301

== ENCOUNTER → 2024-03-23 | Outpatient (CLI) | payer OTHER ==
[~2024-03-23] MED LIST changes: +GABA-1490 PO; -GABA600T4 PO; -TRIAMCINOLONE ACETONIDE SUSP 40MG/ML 1ML VIAL As Ordered ONE
== END ==
LOC: M PAIN 14:00
PROVIDERS: ATTEND Nurse Practitioner Family
DX: G89.29 Other chronic pain (principal); M79.18 Myalgia, other site; G43.909 Migraine, unspecified, not intractable, without status migrainosus; E03.9 Hypothyroidism, unspecified; L93.0 Discoid lupus erythematosus; M35.00 Sjogren syndrome, unspecified; E06.3 Autoimmune thyroiditis; Z87.891 Personal history of nicotine dependence; Z79.82 Long term (current) use of aspirin; Z79.899 Other long term (current) drug therapy; Z79.890 Hormone replacement therapy; Z88.2 Allergy status to sulfonamides; Z88.8 Allergy status to other drugs, medicaments and biological substances

== ENCOUNTER → 2024-03-26 | Outpatient (REF) | payer OTHER | LOC: M SFHCWAGY 17:17 | PROVIDERS: ATTEND Nurse Practitioner Family | DX: N76.0 Acute vaginitis (principal) ==

== ENCOUNTER → 2024-05-05 | Outpatient (CLI) | payer OTHER | LOC: M PAIN 14:45 | PROVIDERS: ATTEND Nurse Practitioner Family | DX: M79.18 Myalgia, other site (principal); G89.29 Other chronic pain; M54.50 Low back pain, unspecified; G43.909 Migraine, unspecified, not intractable, without status migrainosus; E03.9 Hypothyroidism, unspecified; L93.0 Discoid lupus erythematosus; M35.00 Sjogren syndrome, unspecified; E06.3 Autoimmune thyroiditis; Z87.891 Personal history of nicotine dependence; Z79.82 Long term (current) use of aspirin; Z79.899 Other long term (current) drug therapy; Z88.2 Allergy status to sulfonamides; Z88.8 Allergy status to other drugs, medicaments and biological substances ==

== ENCOUNTER → 2024-06-26 | Outpatient (REF) | payer OTHER ==
[2024-06-26 17:43] LABS: APPEARANCE, URINE HAZY (CLEAR); BACTERIA, URINE AUTO 1+ (NEGATIVE); BILIRUBIN, URINE AUTO NEGATIVE (NEGATIVE); BLOOD, URINE BLOOD NEGATIVE (NEGATIVE); COLOR, URINE AMBER (YELLOW); GLUCOSE, URINE (UA) AUTO NEGATIVE (NEGATIVE); KETONE, URINE AUTO NEGATIVE (NEGATIVE); LEUKOCYTE ESTERASE, URINE AUTO NEGATIVE (NEGATIVE); MUCUS, URINE SMALL (NEGATIVE); NITRITE, URINE AUTO POSITIVE (NEGATIVE); PROTEIN, URINE AUTO NEGATIVE (NEGATIVE); RBC, URINE AUTO 0 /HPF (0-3); SPECIFIC GRAVITY URINE AUTO 1.016 (1.002-1.035); SQUAMOUS EPITHELIAL CELL UR AU 13 /HPF (0-6); WBC, URINE AUTO 16 /HPF (0-3)
== END ==
LOC: M SMT 16:51
PROVIDERS: ATTEND Physician Assistant
DX: N39.0 Urinary tract infection, site not specified (principal)

== ENCOUNTER → 2024-07-13 | Outpatient (CLI) | payer OTHER | LOC: M PAIN 09:15 | PROVIDERS: ATTEND Nurse Practitioner Family | DX: M79.18 Myalgia, other site (principal); G43.909 Migraine, unspecified, not intractable, without status migrainosus; E03.9 Hypothyroidism, unspecified; L93.0 Discoid lupus erythematosus; M35.00 Sjogren syndrome, unspecified; E06.3 Autoimmune thyroiditis; Z87.891 Personal history of nicotine dependence; Z79.82 Long term (current) use of aspirin; Z79.890 Hormone replacement therapy; Z79.899 Other long term (current) drug therapy; Z88.2 Allergy status to sulfonamides; Z88.8 Allergy status to other drugs, medicaments and biological substances ==

== ENCOUNTER → 2024-08-21 | Outpatient (CLI) | payer OTHER ==
[~2024-08-21] MED LIST changes: +TRIAMCINOLONE ACETONIDE SUSP 40MG/ML 1ML VIAL As Ordered ONE
== END ==
LOC: M PAIN 14:30
PROVIDERS: ATTEND Anesthesiology
DX: M79.18 Myalgia, other site (principal); G89.29 Other chronic pain; E06.3 Autoimmune thyroiditis; E03.9 Hypothyroidism, unspecified; G43.909 Migraine, unspecified, not intractable, without status migrainosus; M35.00 Sjogren syndrome, unspecified; Z87.891 Personal history of nicotine dependence; Z79.82 Long term (current) use of aspirin; Z79.899 Other long term (current) drug therapy; Z88.2 Allergy status to sulfonamides; Z88.8 Allergy status to other drugs, medicaments and biological substances
CPT/HCPCS: 20552; J0665; J3301

== ENCOUNTER → 2024-09-04 | Outpatient (CLI) | payer OTHER ==
[~2024-09-04] MED LIST changes: -TRIAMCINOLONE ACETONIDE SUSP 40MG/ML 1ML VIAL As Ordered ONE
== END ==
LOC: M PAIN 13:30
PROVIDERS: ATTEND Nurse Practitioner Family
DX: M79.10 Myalgia, unspecified site (principal); G89.29 Other chronic pain; Z79.82 Long term (current) use of aspirin; Z79.899 Other long term (current) drug therapy; Z87.891 Personal history of nicotine dependence; Z88.2 Allergy status to sulfonamides; Z88.8 Allergy status to other drugs, medicaments and biological substances

== ENCOUNTER → 2024-09-24 | Outpatient (REF) | payer OTHER | LOC: M LABWUC 17:43 | PROVIDERS: ATTEND Nurse Practitioner Family | DX: E06.3 Autoimmune thyroiditis (principal) ==

== ENCOUNTER → 2025-03-26 | Outpatient (CLI) | payer OTHER ==
[~2025-03-26] MED LIST changes: +TOPI-257 PO; -TOPI100T9 PO
[2025-03-26 12:47] LABS: CHOLESTEROL LEVEL 105.0 MG/DL (<200); CHOLESTEROL RISK RATIO 2.16 (<5); LDL CHOLESTEROL 38.8 MG/DL (<100); NON-HDL-C 56.4 MG/DL; TRIGLYCERIDES LEVEL 88.0 MG/DL (<150)
== END ==
LOC: M WUC 08:04
PROVIDERS: ATTEND Nurse Practitioner Acute Care
DX: E78.00 Pure hypercholesterolemia, unspecified (principal)

== ENCOUNTER → 2025-04-23 | Outpatient (CLI) | payer OTHER ==
[2025-04-23 12:30] LABS: CALCIUM LEVEL 9.2 MG/DL (8.5-10.1); CARBON DIOXIDE LEVEL 24.0 MMOL/L (20-31); CHLORIDE LEVEL 108.0 MMOL/L (98-107); CREATININE FOR GFR 1.14 MG/DL (0.55-1.30); GLOMERULAR FILTRATION RATE 56.5 (>51); POTASSIUM SERUM 4.2 MMOL/L (3.5-5.1); SODIUM LEVEL 143.0 MMOL/L (136-145)
[2025-04-23 12:33] LABS: BASO # 0.0 10^3/uL (0.0-0.2); BASO % 0.9 % (0.0-1.0); EOS # 0.1 10^3/uL (0.0-0.5); EOS % 2.5 % (0.0-3.0); LYMPH # 2.0 10^3/uL (1.5-5.0); LYMPH % 45.9 % (24.0-44.0); MONO # 0.6 10^3/uL (0.0-0.8); MONO % 13.9 % (2.0-8.0); NEUTROPHILS # 1.6 10^3/uL (1.5-8.5); NEUTROPHILS % 36.6 % (36.0-66.0); PLATELET COUNT, AUTOMATED 224 10^3/uL (150-450)
[2025-04-23 12:45] LABS: TOTAL PROTEIN,RANDOM URINE 11.1 MG/DL (0.0-14.0)
[2025-04-23 16:29] LABS: APPEARANCE, URINE HAZY (CLEAR); BACTERIA, URINE AUTO NEGATIVE (NEGATIVE); BILIRUBIN, URINE AUTO NEGATIVE (NEGATIVE); BLOOD, URINE BLOOD NEGATIVE (NEGATIVE); GLUCOSE, URINE (UA) AUTO NEGATIVE (NEGATIVE); KETONE, URINE AUTO NEGATIVE (NEGATIVE); LEUKOCYTE ESTERASE, URINE AUTO NEGATIVE (NEGATIVE); MUCUS, URINE SMALL (NEGATIVE); NITRITE, URINE AUTO NEGATIVE (NEGATIVE); PROTEIN, URINE AUTO NEGATIVE (NEGATIVE); RBC, URINE AUTO 2 /HPF (0-3); SPECIFIC GRAVITY URINE AUTO 1.012 (1.002-1.035); SQUAMOUS EPITHELIAL CELL UR AU 8 /HPF (0-6); UROBILINOGEN, URINE AUTO 0.2 mg/dL (0.0-2.0); WBC, URINE AUTO 2 /HPF (0-3)
== END ==
LOC: M WUC 08:59
PROVIDERS: ATTEND Internal Medicine Rheumatology
DX: M32.9 Systemic lupus erythematosus, unspecified (principal)